=== PATIENT | male | born 1980 | race African-American/Black ===

== ENCOUNTER 2017-01-08 10:18 | Emergency (ER) | payer OTHER ==
[~2017-01-08] VITALS: Ht 175.3 cm; Wt 85.0 kg
[2017-01-08] MEDS ORDERED: SODIUM CHLORIDE 0.9% 1,000ML IVBOLUS ONE (11:30)
[2017-01-08] MEDS ORDERED: SODIUM CHLORIDE FLUSH 10ML SYR IVF ONE (11:30)
[2017-01-08] MEDS ORDERED: ACETAMINOPHEN 500 MG TABLET PO ONE (11:30)
[2017-01-08] MEDS ORDERED: KETOROLAC 30 MG/1 ML IVPush ONE (11:30)
[2017-01-08] MEDS ORDERED: KETOROLAC 30 MG/1 ML ONE (11:34)
[2017-01-08] MEDS ORDERED: ACETAMINOPHEN 500 MG TABLET ONE (11:34)
[2017-01-08 11:46] LABS: HEMATOCRIT 41.4 % (39.2-51.8); WHITE BLOOD COUNT 3.3 x10^3/uL (3.4-10)
[2017-01-08 11:51] LABS: BLOOD UREA NITROGEN 9 mg/dL (7-18)
[2017-01-08 11:58] LABS: RAPID INFLUENZA A Negative (Negative); RAPID INFLUENZA B Negative (Negative)
[2017-01-08] MEDS ORDERED: SODIUM CHLORIDE 0.9%, 500ML IVBOLUS ONE (15:00)
[2017-01-08 15:23] VITALS: BP 118/70
== END 2017-01-08 15:24 | disposition home or self-care (01) ==
LOC: ED 12:53
DX: J00 Acute nasopharyngitis [common cold] (principal); J02.9 Acute pharyngitis, unspecified; E78.00 Pure hypercholesterolemia, unspecified; E11.65 Type 2 diabetes mellitus with hyperglycemia
CPT/HCPCS: 36415; 71010; 80048; 82040; 82962; 85025; 87400; 96361; 96374; 99285; J1885; J7030; J7040